=== PATIENT | male | born 1965 | race Caucasian/White ===

== ENCOUNTER 2016-11-03 13:43 | Inpatient (IN) | payer OTHER ==
--- NOTE | 2017-01-22 09:49 | HP ---
DATE OF CLINIC: 01/13/2017 SANTIAGO DELVALLE : 1965 PLANNED PROCEDURE: Right Total Hip Arthroplasty DATE OF PROCEDURE: January 25, 2017 SURGEON: Santiago Stauffer M.D. PCP: Dr. Karl Cardoso @[facility] HISTORY OF PRESENT ILLNESS Santiago Delvalle is a 51 year old male. * Medication list reviewed with patient allergy list reviewed with patient. * Tried NSAIDS * Has not tried Physical Therapy * Has not tried Injections Mr. Delvalle is in today pre-operatively for his upcoming R LATOYA with Dr. Stauffer on 01/25/17. Patient presents in good spirits and is ready to proceed. He denies recent illness, change in health, or previous surgical complications. is recent consult with Dr. Stauffer follows: 51-year-old male here for initial consultation with respect to right greater than left hip pain. This has been progressive with some initial problems since approximately 1993. This has been previously managed at the [facility] with some notes available for my review. He describes his discomfort as lateral with some radiation anteriorly and posteriorly. It is worse with weight-bearing, although has rest discomfort. He has no radicular symptoms. Some radiation down to the knee more so on the right side. His pain at times is quite sharp. He does have increased discomfort going up or down hills or at startup. He uses ibuprofen as well as acetaminophen. He is interested in consideration of definitive management options. Comorbidities include hypertension and hypercholesterolemia. He currently is unemployed. He is a non-smoker. CURRENT MEDICATION * *Supplement Miscellaneous as directed vitamin c, super B complex, vitamin d3, vitamin e, fish oil, flaxseed oil, cranberry, 0 days, 0 refills * Acetaminophen 500 MG Tablet 2 tabs am 2 tabs pm 0 days, 0 refills * Cetirizine HCl 10 MG Tablet 1 once a day 0 days, 0 refills * HydroCHLOROthiazide 12.5 MG Tablet 1 once a day 0 days, 0 refills * Ibuprofen 800 MG Tablet three times a day 0 days, 0 refills * Losartan Potassium 50 MG Tablet half a tablet every day 0 days, 0 refills * Simvastatin 20 MG Tablet 1 once a day 0 days, 0 refills * ZyrTEC Allergy 10 MG Capsule 1 once a day 0 days, 0 refills PAST MEDICAL/SURGICAL HISTORY Reported: Medical: A previous fracture Right middle finger, Reported numbness hands and right testical, Reported tingling hands and right testical, history of Arthritis, Depression constant pain and unemployed, Hypertension, Vertigo, Poor healing wounds/lesions, and Asthma. Surgical / Procedural: Prior surgery oral (teeth removed and implants) 2013, Carpal Tunnel Surgery Left 2009, Right , and Arthroscopy Right knee . SOCIAL HISTORY Behavioral: Caffeine use and non-smoker never smoked. Smoking status: Never smoker. Alcohol: Alcohol use. Work: Occupation unemployed. ALLERGIES * Penicillin REVIEW OF SYSTEMS Systemic: No fever and no recent weight change. Head: No head symptoms. Cardiovascular: Cardiovascular symptoms HTN. Pulmonary: No pulmonary symptoms. Gastrointestinal: No gastrointestinal symptoms. Psychological: No psychological symptoms. Skin: No skin lesions and no rash. PHYSICAL FINDINGS * Vitals taken 01/13/2017 09:57 am BP-Sitting R 161/102 mmHg 100 - 120/60 - 80 BP Cuff Size Regular Pulse Rate-Sitting 85 bpm 50 - 100 Temp-Oral 99 F 96 - 101 Height 67.5 in 64 - 74 Weight 218 lbs 6.4 oz 125 - 225 Body Mass Index 33.7 kg/m2 Body Surface Area 2.11 m2 Pain Level 7 Ears, Nose, Throat: * ENT: normal. Lungs: * Clear to auscultation. Cardiovascular: Heart Rate and Rhythm: * Normal. Abdomen: * Normal. Neurological: Motor: * Dominant Hand = Right Hand. Patient is an obese male no in acute distress, normal-appearing mood and affect. He has a level pelvis. Ambulates with an externally rotated Trendelenburg gait favoring the right. Evaluation of the right hip girdle shows skin integrity to be well-preserved, no wounds, rashes or lesions. Mild tenderness laterally over the trochanter, NT in the groin, NT in the sciatic notch. ROM is greater than 90 degrees of flexion, 30 degrees of abduction, 45 degrees ER, 10 degrees IR with exacerbation of pain. Patient can adduct to the midline and extend fully. Thigh is soft and NT. No atrophy or asymmetry compared to the contralateral side. Cursory exam of the knee shows normal alignment. No swelling or effusion. skin integrity to be well-preserved, no wounds, rashes or lesions. Motion 0-125 degrees. Normal ligamentous exam. Calf is soft and NT. Distal light touch sensation and motor function are grossly intact and symmetric. Pulses are palpable. Sitting SLR is negative. Evaluation of the left hip shows skin integrity to be well-preserved, no wounds, rashes or lesions. He is NT laterally, NT in the groin, NT in the sciatic notch. Motion is greater than 90 degrees of flexion, 20 degrees IR with groin pain, 45 degrees ER, 35 degrees of abduction, he can adduct past the midline and extend fully. Thigh is soft and NT with no atrophy or asymmetry compared to the contralateral side. Evaluation of the knee shows skin integrity to be well-preserved, no wounds, rashes or lesions. No swelling or effusion. Motion 0-130 degrees. Normal ligamentous exam. No focal medial or lateral joint-line tenderness. NT in the proximal tibia. Calf is soft and NT. Distal light touch sensation and motor function are grossly intact and symmetric. Pulses are palpable. Sitting SLR is negative. TESTS * Test: URINALYSIS WITH MICROSCOPIC Report Date: 01/13/2017 EPITHELIAL CELL OCCASIONAL WBC 0-3 GLUCOSE NEGATIVE BACTERIA 0 PH,URINE 5.0 SPEC. GRAVITY 1.025 KETONE NEGATIVE NITRITE NEGATIVE RBC 0 BLOOD TRACE BILIRUBIN NEGATIVE APPEARANCE HAZY PROTEIN NEGATIVE COLOR YELLOW LEUK ESTERASE TRACE UROBILINOGEN NORMAL * Test: CBC WITH DIFF Report Date: 01/13/2017 WBC 7.5 10*3/mL BASOPHIL 1.2 % High RBC 5.37 10*6/uL NEUTROPHILS 53.5 % MCH 28.5 pg MCHC 33.7 g/dL RDW 13.4 % MCV 84.5 fL PLATELET COUNT 294 10*3/mL IMM NEUT % 0.4 % IMM NEUT # 0.0 10*3/mL MONOCYTES 8.3 % EOSINOPHIL 4.4 % High HCT 45.4 % HGB 15.3 g/L LYMPHOCYTE 32.2 % ANC 4.0 10*3/mL * Test: PROTHROMBIN TIME Report Date: 01/13/2017 PROTIME 9.8 s INR 0.93 * Test: PARTIAL THROMBOPLASTIN TIME Report Date: 01/13/2017 APTT 23.3 s Low * Test: COMPREHENSIVE METABOLIC PANEL Report Date: 01/13/2017 ALT/SGPT 24 U/L ALBUMIN 4.6 g/dL ALB/GLOB RATIO 1.9 BUN 15 mg/dL BUN/CREAT RATIO 14 CALCIUM 9.8 mg/dL GLUCOSE 104 mg/dL High CREATININE 1.1 mg/dL SODIUM 139 meq/L POTASSIUM 4.2 meq/L CHLORIDE 104 meq/L CARBON DIOXIDE 30 meq/L ANION GAP 9 meq/L TOT PROTEIN 7.0 g/dL GLOBULIN 2.4 g/dL BILI,TOTAL 0.5 mg/dL AST/SGOT 19 U/L ALK PHOSPHATASE 41 U/L GFR 71 Pelvis and right hip films from today are reviewed. This shows complete superior joint loss with femoral head flattening. There is superolateral prominence at the head/neck junction, periarticular sclerosis. Medial osteophyte is also seen. Bony mineralization is reasonable. Contralateral hip shows similar, but not quite as dramatic changes with some superolateral head subchondral cystic changes. ASSESSMENT * Localized primary osteoarthritis of the right hip Advanced DJD, right hip. Advanced DJD, left hip. THERAPY * Patient not eligible for fall risk assessment. PLAN * Unilateral primary osteoarthritis, right hip Physical Therapy: *Other * OTHER OxyCONTIN 10 MG T12A, 1 po q 12 hours-TO BE USED FOR AFTER SURGERY, 10 days, 0 refills TraMADol HCl 50 MG TABS, 1 po q 6 hours prn pain-TO BE USED FOR AFTER SURGERY, 5 days, 0 refills OxyCODONE HCl 5 MG TABS, 1-2 po q 4-6 hours for break thru pain if needed-TO BE USED FOR AFTER SURGERY, 5 days, 0 refills * Total hip replacement -Right Discussed with patient in detail the limitations, expectations as well as risks and possible complications of surgery including, but not limited to wound problems or infection, neurovascular injury, continued hip pain or dysfunction, postop instability including the possibility of dislocation and/or postop leg length discrepancy, and the possibility of prosthetic wear or failure over time that may require additional operative or non-operative treatment. Patient also realizes the perioperative risks including risks associated with anesthesia and would like to proceed. A full PAR conference was held, questions and concerns addressed and informed consent was obtained. Patient will be sent from my office for completion of the preoperative workup. Patient will use enteric coated aspirin 325mg daily for 6 weeks postoperatively for DVT prophylaxis. Patient would like to perform their postop PT at [facility] with right total hip arthroplasty protocol, posterior hip precautions. CARE TEAM Need To Load Need to Load Ph.D.Medical Genetics CC: Karl Cardoso MD - [facility] RS/sg
[2017-01-25] MEDS ORDERED: LACTATED RINGERS 1,000 ML ONE (05:33)
[2017-01-25] MEDS ORDERED: IV START KIT ONE (05:33)
[2017-01-25] MEDS ORDERED: CELECOXIB 200 MG CAPSULE PO ONE (05:45)
[2017-01-25] MEDS ORDERED: OXYCODONE HCL 10 MG TAB.SR PO ONE ×2 (05:45→06:40)
[2017-01-25] MEDS ORDERED: CLONIDINE HCL 0.1 MG/24 HR (7 DAY PATCH) TD SCH (05:45)
[2017-01-25] MEDS ORDERED: FAMOTIDINE 20 MG TABLET PO ONE (05:45)
[2017-01-25] MEDS ORDERED: TRAMADOL HCL 50 MG TABLET PO ONE (05:45)
[2017-01-25] MEDS ORDERED: CLINDAMYCIN 900 MG PREMIX 100 ML IV PRN (05:45)
[2017-01-25] MEDS ORDERED: ONDANSETRON 4 MG/2ML 2 ML VIAL IV ONE (05:45)
[2017-01-25] MEDS ORDERED: GABAPENTIN 600 MG TABLET PO ONE (05:45)
[2017-01-25] MEDS ORDERED: CLINDAMYCIN 900 MG PREMIX 50 ML IV ONE (05:48)
[2017-01-25] MEDS ORDERED: TRAMADOL HCL 50 MG TABLET ONE (06:40)
[2017-01-25] MEDS ORDERED: FAMOTIDINE 20 MG TABLET ONE (06:40)
[2017-01-25] MEDS ORDERED: ONDANSETRON 4 MG/2ML 2 ML VIAL ONE (06:41)
[2017-01-25] MEDS ORDERED: GABAPENTIN 600 MG TABLET ONE (06:41)
[2017-01-25] MEDS ORDERED: CLONIDINE HCL 0.1 MG/24 HR (7 DAY PATCH) TD ONE (06:41)
[2017-01-25] MEDS ORDERED: CELECOXIB 200 MG CAPSULE ONE (06:41)
[2017-01-25] MEDS ORDERED: MIDAZOLAM HCL 5 MG/5 ML VIAL ONE (07:20)
[2017-01-25] MEDS ORDERED: FENTANYL 100 MCG/2 ML VIAL ONE (07:20)
[2017-01-25] MEDS ORDERED: SPINAL PROCEDURAL TRAY 1 EACH ONE (07:23)
[2017-01-25] MEDS ORDERED: BUPIVACAINE 0.75% SPINAL AMPUL 2 ML ONE (07:23)
[2017-01-25] MEDS ORDERED: BUPIVACAINE 0.25% (MDV) 20 ML in SODIUM CHLORIDE 0.9% FLUSH 20 ML IF PRN (07:50)
[2017-01-25] MEDS ORDERED: BUPIVACAINE 0.25% (MDV) 24 ML, MORPHINE SULFATE 8 MG, EPINEPHRINE 0.3 MG in SODIUM CHLO... IF PRN (07:50)
[2017-01-25] MEDS ORDERED: TRANEXAMIC ACID 1,000 MG in SODIUM CHLORIDE 0.9% 100 ML IV PRN (07:50)
[2017-01-25] MEDS ORDERED: POLYMYXIN B SULFATE 500,000 UNITS, BACITRACIN 25,000 UNITS in SODIUM CHLORIDE 3 L IRRIG... IR PRN (07:50)
[2017-01-25] MEDS ORDERED: PROPOFOL 40 ML IV ONE (08:00)
[2017-01-25] MEDS ORDERED: KETAMINE HCL UD SYRINGE 100 MG/2 ML IV ONE (08:00)
[2017-01-25] MEDS ORDERED: EPHEDRINE SULFATE UD SYR 25 MG 25 MG/5 ML SYRINGE IV ONE (08:11)
[2017-01-25] MEDS ORDERED: PHENYLEPHRINE 10 MG/1 ML (1%) VIAL ONE (08:15)
[2017-01-25] MEDS ORDERED: LACTATED RINGERS 1,000 ML IV SCH (08:30)
[2017-01-25] MEDS ORDERED: FENTANYL 100 MCG/2 ML VIAL IV PRN (08:30)
[2017-01-25] MEDS ORDERED: HYDROMORPHONE HCL 1 MG/ML SYRINGE IV PRN (08:30)
[2017-01-25] MEDS ORDERED: PROMETHAZINE HCL 25 MG/ML VIAL IM PRN (08:30)
[2017-01-25] MEDS ORDERED: ONDANSETRON 4 MG/2ML 2 ML VIAL IV PRN ×2 (08:30→10:29)
[2017-01-25] MEDS ORDERED: NALOXONE HCL 0.4 MG/ML VIAL IV PRN (08:30)
[2017-01-25] MEDS ORDERED: ATROPINE SULFATE 0.4 MG/1 ML VIAL IV PRN (08:30)
--- NOTE | 2017-01-25 10:17 | PCMBPN ---
Brief Post Op Note: Date of Procedure: 01/25/17 Preoperative Diagnosis: DJD right hip Postoperative Diagnosis: 1. [Same] Procedure: right LATOYA Surgeon: Santiago Stauffer MD Assist:Rohan (TANIKA) Anesthesia: spinal (Bahrke) Condition: stable to PAR Complications: none IV Fluids:1500 mLs of LR Urine Output: 90 mLs Estimated Blood Loss: 200 mLs Tourniquet Time: [N/A] Specimens: [N/A] Implants: Trilock Drains: [N/A]
[2017-01-25] MEDS ORDERED: TEMAZEPAM 15 MG CAPSULE PO PRN (10:29)
[2017-01-25 10:47] VITALS: BMI 33.7
[2017-01-25] MEDS ORDERED: PUMP TUBING ONE (11:44)
[2017-01-25] MEDS: D5 1/2NS with 20 mEq KCL 1,000 ML IV SCH ×2 (11:49→19:17)
[2017-01-25] MEDS: OXYCODONE HCL 5 MG TABLET PO PRN ×4 (12:17→22:51)
[2017-01-25] MEDS: KETOROLAC TROMETHAMINE 30 MG/ML 1 ML VIAL IV PRN ×2 (12:17→18:10)
--- NOTE | 2017-01-25 12:26 | RAD ---
PELVIS HISTORY: Postop right LATOYA COMPARISONS: Hip series 08/04/2016 FINDINGS: Single AP view of the pelvis and straight right total hip arthroplasty changes. Hardware is intact without signs of failure or loosening on the single projection. No fracture or dislocation. Degenerative changes of left hip are again noted. Nonspecific bowel gas pattern overlays the osseous structures. Soft tissue gas from the patient's surgery is identified. IMPRESSION: Satisfactory postoperative exam.
[2017-01-25] MEDS: CLINDAMYCIN 600 MG PREMIX 600 MG in Premix (D5W) 50 ml 1 EACH IV SCH ×2 (14:00→20:12)
[2017-01-25] MEDS: TRAMADOL HCL 50 MG TABLET PO PRN ×2 (14:58→22:51)
[2017-01-25] MEDS: ACETAMINOPHEN 500 MG TABLET PO SCH ×2 (15:45→22:50)
[2017-01-25] MEDS: ASCORBIC ACID 500 MG TABLET PO SCH (20:12)
[2017-01-25] MEDS: SIMVASTATIN 10 MG TABLET PO SCH (20:12)
[2017-01-25] MEDS: DOCUSATE SODIUM 100 MG CAPSULE PO SCH (20:12)
[2017-01-26] MEDS: D5 1/2NS with 20 mEq KCL 1,000 ML IV SCH (02:23)
[2017-01-26] MEDS: CLINDAMYCIN 600 MG PREMIX 600 MG in Premix (D5W) 50 ml 1 EACH IV SCH (02:24)
[2017-01-26] MEDS: OXYCODONE HCL 5 MG TABLET PO PRN ×4 (02:33→21:51)
[2017-01-26] MEDS: ACETAMINOPHEN 500 MG TABLET PO SCH ×4 (05:20→21:51)
[2017-01-26] MEDS: TRAMADOL HCL 50 MG TABLET PO PRN (05:20)
[2017-01-26] MEDS ORDERED: REMOVE PATCH 1 EACH UNIT TD SCH (05:45)
[2017-01-26 06:36] LABS: HEMATOCRIT 32.8 % (32.0-52.0); HEMOGLOBIN 10.7 gm/l (14.0-18.0); MEAN CELL VOLUME 87.7 fl (80.0-94.0); MEAN CORPUSCULAR HEMOGLOBIN 28.6 pg (27.0-31.0); MEAN CORPUSCULAR HGB CONC 32.6 g/dl (33.0-37.0); RED CELL DISTRIBUTION WIDTH 13.8 % (11.5-14.5)
[2017-01-26 06:48] LABS: CALCIUM 8.4 mg/dL (8.6-10.3)
[2017-01-26] MEDS: DOCUSATE SODIUM 100 MG CAPSULE PO SCH ×2 (08:51→21:52)
[2017-01-26] MEDS: CELECOXIB 200 MG CAPSULE PO SCH (08:51)
[2017-01-26] MEDS: LOSARTAN POTASSIUM 50 MG TABLET PO SCH (08:52)
[2017-01-26] MEDS: HYDROCHLOROTHIAZIDE 12.5 MG CAP PO SCH (08:52)
[2017-01-26] MEDS: ASPIRIN (ENTERIC COATED) 325 MG TABLET.EC PO SCH (08:52)
[2017-01-26] MEDS: MULTIVITAMINS 1 TAB TABLET PO SCH (08:53)
[2017-01-26] MEDS: ASCORBIC ACID 500 MG TABLET PO SCH ×2 (08:54→21:51)
[2017-01-26] MEDS: CETIRIZINE HCL 10 MG TABLET PO SCH (08:54)
--- NOTE | 2017-01-26 09:35 | PDOC43 ---
- Subjective Findings: Pt seen this morning. Hip doing fine but he didn't get much sleep. States he is having right eye discomfort, itching, blurred vision. Feels as if he has scratched his eye. He flt this way yesterday despite he did not mention it to me until today Subjective: Reports Pain Tolerable, Denies Chest Pain, Denies Shortness of Breath, Denies Nausea, Denies Vomiting, Denies Fever - Objective Vital Signs Temperature 97.8 F 01/26/17 07:18 Pulse Rate 84 01/26/17 07:18 Respiratory Rate 16 01/26/17 07:41 Blood Pressure 118/62 01/26/17 07:18 O2 Saturation by Pulse Oximetry 98 01/26/17 07:18 Oxygen Delivery Method Room Air Oxygen Flow Rate 0 Laboratory 01/26/17 06:00 01/26/17 05:10 01/26/17 01/26/17 06:00 05:10 RBC 3.74 L MCHC 32.6 L Anion Gap 7 L Calcium 8.4 L Active Medication Orders Category Date Time Status Acetaminophen [Tylenol] Med 01/25/17 16:30 Active 1,000 mg PO Q6H Ascorbic Acid [Vitamin C] Med 01/25/17 21:00 Active 500 mg PO BID Aspirin (Enteric Coated) [Ecotrin] Med 01/26/17 09:00 Active 325 mg PO DAILY Bisacodyl [Dulcolax] Med 01/28/17 10:18 Active 10 mg TN DAILY PRN Calcium Carbonate [Tums] Med 01/25/17 10:29 Active 1,000 - 2,000 mg PO Q2H PRN Celecoxib [Celebrex] Med 01/26/17 09:00 Active 200 mg PO DAILY Cetirizine HCl [Zyrtec] Med 01/26/17 09:00 Active 10 mg PO DAILY D5 1/2NS with 20 mEq KCL [D51/2NS with 20 mEq KCL] 1, Med 01/25/17 10:30 Active 000 ml IV 125 mls/hr Docusate Sodium [Colace] Med 01/25/17 21:00 Active 100 mg PO BID Hydrochlorothiazide Med 01/26/17 09:00 Active 12.5 mg PO DAILY Hydroxyzine Pamoate [Vistaril] Med 01/25/17 10:29 Active 25 - 50 mg PO Q4H PRN Ketorolac Tromethamine [Toradol] Med 01/25/17 10:29 Active 30 mg IV Q6H PRN Losartan Potassium [Cozaar] Med 01/26/17 09:00 Active 25 mg PO DAILY Magnesium Hydroxide [Milk of Magnesia] Med 01/26/17 10:18 Active 30 ml PO DAILY PRN Multivitamins [One-A-Day] Med 01/26/17 09:00 Active 1 tab PO DAILY Ondansetron 4 mg/2ml Vial [Zofran] Med 01/25/17 10:29 Active 4 - 6 mg IV Q6H PRN Oxycodone HCl [Roxicodone] Med 01/25/17 10:29 Active 5 - 10 mg PO Q4H PRN Remove Patch Med 01/26/17 10:18 Once 1 each TD X1 ONE Simvastatin [Zocor] Med 01/25/17 20:00 Active 20 mg PO QPM Sodium Chloride 0.9% Flush [Normal Saline 10ml Flush] Med 01/25/17 10:29 Active 10 - 50 ml IV PRN PRN Sodium Chloride 0.9% Flush [Normal Saline 10ml Flush] Med 01/26/17 09:00 Active 10 ml IV Q8HR Temazepam [Restoril] Med 01/25/17 10:29 Active 15 mg PO BEDTIME PRN Tetrahydrozoline HCl [Opti-Clear] Med 01/26/17 09:16 Ordered 2 gtts OD Q4H PRN Tramadol HCl [Ultram] Med 01/25/17 10:29 Active 50 mg PO Q6H PRN Intake and Output 01/24/17 01/25/17 01/26/17 23:59 23:59 23:59 Intake Total 3055 3225 Output Total 1065 1650 Balance 1990 1575 General: Afebrile HEENT: PERRLA, EOMI, Other (Right eye with mld marginal eythema, some exudate on lashes. No Purulent drainage. With unable to see foreign bodywith ophthalmoscope.) Lungs: Normal Air Movement Abdomen: Soft, Non-Distended Skin: Normal Color Neurological: Alert, Oriented x 4 Psych/Mental Status: Normal Affect - Right Lower Extremity Incision: Dressing Clean/Dry/Intact Motor: Extensor Hallucis Longus: 5/5, Tibialis Anterior: 5/5, Gastrocnemius: 5/5 , Peroneals: 5/5, Quadriceps: 3/5 Gross Sensation to Light Touch: Present: Deep Peroneal Nerve, Superficial Peroneal Nerve Motion: Calf soft NT Knee and hip Rom without sig pain Mod assist with SLR - Problems (1) Status post right hip replacement Status: AcuteAssessment/Plan: Pod#1 1. Physical Therapy:Mobilize with PT/OT 2. Pain Control:Per protocol 3. DVT Prophylaxis:ASA, foot pumps and mobility 4. Disposition:Hip is doing good, Will monitor his eye may need slit lamp exam 5. Medical Issues:Superficial right eye abrasion. Will rinse and cleanse and add antibiotic drops if needed
[2017-01-26] MEDS: TETRAHYDROZOLINE 0.05% OD PRN ×3 (09:41→21:52)
[2017-01-26] MEDS: [UNRECOGNIZED DRUG - OTHER] OD PRN ×3 (09:41→21:52)
--- NOTE | 2017-01-26 09:49 | OP ---
JENNA FREEMAN [id number] : 1965 DATE OF SURGERY: January 25, 2017 PREOPERATIVE DIAGNOSIS: Degenerative joint disease right hip POSTOPERATIVE DIAGNOSIS: Same PROCEDURE: Right Total Hip Arthroplasty COMPONENTS: Tri-Lock size 5 standard offset press-fit femoral stem with a +1.5 36mm Delta ceramic femoral head, 54mm Sanders 100 press-fit acetabular shell with a neutral +4 cross-linked polyethylene liner. SURGEON: Eh ASSIST: Aster SOLIMAN) ANESTHESIA: Spinal per Bahrke EBL: 200 mL URINE OUTPUT: 90 mL IVF REPLACEMENT: Per anesthesia, 1.5 liters crystalloid DRAINS: None COMPLICATIONS: None HISTORY: Briefly, patient is a [id number] with clinical and radiographic evidence most consistent with degenerative joint disease of their right hip. They have failed traditional nonoperative measures and at this point desire elective surgical management. For additional details, refer to previously dictated Preoperative History and Physical Exam. A full PAR conference was held, questions and concerns were addressed, and informed consent was obtained. FINDINGS: Advanced degenerative changes with a large medial acetabular osteophyte and femoral head eburnation. Bony mineralization was reasonable. PROCEDURE: The patient was taken to the operating room and after previously described anesthesia was placed in the lateral decubitus position on the operating room table and held with the peg board positioner. Monica prominences were well padded and an axillary roll was placed. The right hip girdle and lower extremity were then prepped and draped out in the usual sterile fashion. Preoperative antibiotics were given empirically. Intraoperative DVT prophylaxis consisted of bilateral mechanical foot pumps. Personal filtration suits were used as was a closed room environment. An oblique ten centimeter incision was made using the minimally invasive guide posterior and extending slightly proximal to the greater trochanter. We dissected through subcutaneous tissue down to the gluteus fascia. Electrocautery was used at this point and throughout the duration of the case to establish and maintain hemostasis. The gluteus fascia was incised in line with the incision and the muscle fibers split to expose the underlying bursal tissue. Tranexamic acid was infiltrated over 10 minutes prior to incision, 1 gram dose per protocol. A similar 2nd dose was given at initiation of closure. A deep self retaining field retractor was placed. The short external rotators were identified, the piriformis was tagged and reflected with the underlying capsule which was reflected in a U fashion off the femoral neck and tagged as well for later repair. Release of the capsule allowed for dislocation of the hip and the femoral head was brought up into the operative field. A femoral neck cut was made proximal to the lesser trochanter as per our preoperative templating. We then translated the femur anteriorly exposing the acetabulum. The remaining labrum was excised circumferentially. Osteophytes were debrided under direct visualization. We reamed to the true acetabular floor and then incrementally up to a 53 as per our preoperative plan at which point we noted circumferential bleeding cancellous bone. This was trialed at approximately 45 degrees of abduction and 20 degrees of anteversion, which is slightly more than his [place], with good fit and stability. I closed him down more than his normal geometry as well for the stability standpoint. We then impacted the true acetabular component which was seated completely. An apical hole cover was placed and we impacted the neutral crosslinked polyethylene liner. Attention was then directed back to the femur. The remaining soft tissue was cleared from the piriformis fossa and we use a rongeur and box osteotome to enter the proximal femoral canal followed by the canal seeker and then the broach only system up to a size 5 matching the patient's [place] anteversion with good proximal fill and rotational stability. This was trialed with a standard offset +1.5. The hip was then reduced with good stability to 70 degrees of internal rotation in 90 degrees of flexion and full extension with no instability on external rotation. There was good soft tissue balance and approximately equal leg lengths. Satisfied, trial components were removed and we impacted the true femoral stem. The trunnion was then cleaned and dried and the femoral head was impacted. The hip was then reduced with stability as previously discussed. Satisfied, we turned our attention to closure. The wound was copiously irrigated with antibiotic pulsatile lavage. We then advanced the capsule and piriformis to the gluteus medius insertion. The gluteus fascia was closed with a running number two PDO StratoFix suture. 1st periarticular injection was given at this point per protocol into the capsule, synovium, gluteus and external rotators. The subcutaneous tissue was closed with interrupted 2-0 and 3-0 Vicryl and the skin was closed with a running 4-0 Monocryl stitch with Indermil and Steri-Strips. The 2nd periarticular injection was done at this point per protocol into the subcutaneous tissue superiorly and anteriorly to the incision. A sterile hip dressing was then applied, the patient was returned to the supine position, transferred to their hospital bed, and sent to the postoperative recovery room in stable condition. They tolerated the procedure well. Sponge, instrument, and needle count were correct. DANIKA/mrw CC: Karl Cardoso MD [facility]
[2017-01-26] MEDS ORDERED: MAGNESIUM HYDROXIDE 30 ML UDCUP PO PRN (10:18)
[2017-01-26] MEDS ORDERED: REMOVE PATCH 1 EACH UNIT TD ONE (10:18)
[2017-01-26] MEDS: HYDROXYZINE PAMOATE 25 MG CAPSULE PO PRN ×3 (11:57→21:52)
[2017-01-26] MEDS: SIMVASTATIN 10 MG TABLET PO SCH (20:18)
[2017-01-26] MEDS: CALCIUM CARBONATE 500 MG TAB.CHEW PO PRN (22:06)
[2017-01-27] MEDS: ACETAMINOPHEN 500 MG TABLET PO SCH ×2 (05:12→11:12)
[2017-01-27 06:09] LABS: HEMATOCRIT 31.5 % (32.0-52.0); HEMOGLOBIN 10.2 gm/l (14.0-18.0)
--- NOTE | 2017-01-27 08:07 | PDOC43 ---
- Subjective Findings: Pt seen this morning awake doing well with his hip. Still having right eye pain , redness, increased drainage and blurred vision. States would like to go home today if possible. Subjective: Reports Flatus, Reports Pain Tolerable, Denies Chest Pain, Denies Shortness of Breath, Denies Nausea, Denies Vomiting, Denies Fever - Objective Vital Signs Temperature 98.5 F 01/27/17 06:59 Pulse Rate 86 01/27/17 06:59 Respiratory Rate 16 01/27/17 06:59 Blood Pressure 121/69 01/27/17 06:59 O2 Saturation by Pulse Oximetry 94 01/27/17 06:59 Oxygen Delivery Method Room Air Oxygen Flow Rate 0 Laboratory 01/27/17 05:30 01/26/17 05:10 Active Medication Orders Category Date Time Status Acetaminophen [Tylenol] Med 01/25/17 16:30 Active 1,000 mg PO Q6H Ascorbic Acid [Vitamin C] Med 01/25/17 21:00 Active 500 mg PO BID Aspirin (Enteric Coated) [Ecotrin] Med 01/26/17 09:00 Active 325 mg PO DAILY Bisacodyl [Dulcolax] Med 01/28/17 10:18 Active 10 mg MT DAILY PRN Calcium Carbonate [Tums] Med 01/25/17 10:29 Active 1,000 - 2,000 mg PO Q2H PRN Celecoxib [Celebrex] Med 01/26/17 09:00 Active 200 mg PO DAILY Cetirizine HCl [Zyrtec] Med 01/26/17 09:00 Active 10 mg PO DAILY Docusate Sodium [Colace] Med 01/25/17 21:00 Active 100 mg PO BID Hydrochlorothiazide Med 01/26/17 09:00 Active 12.5 mg PO DAILY Hydroxyzine Pamoate [Vistaril] Med 01/25/17 10:29 Active 25 - 50 mg PO Q4H PRN Losartan Potassium [Cozaar] Med 01/26/17 09:00 Active 25 mg PO DAILY Magnesium Hydroxide [Milk of Magnesia] Med 01/26/17 10:18 Active 30 ml PO DAILY PRN Multivitamins [One-A-Day] Med 01/26/17 09:00 Active 1 tab PO DAILY Ondansetron 4 mg/2ml Vial [Zofran] Med 01/25/17 10:29 Active 4 - 6 mg IV Q6H PRN Oxycodone HCl [Roxicodone] Med 01/25/17 10:29 Active 5 - 10 mg PO Q4H PRN Simvastatin [Zocor] Med 01/25/17 20:00 Active 20 mg PO QPM Sodium Chloride 0.9% Flush [Normal Saline 10ml Flush] Med 01/25/17 10:29 Active 10 - 50 ml IV PRN PRN Sodium Chloride 0.9% Flush [Normal Saline 10ml Flush] Med 01/26/17 09:00 Active 10 ml IV Q8HR Temazepam [Restoril] Med 01/25/17 10:29 Active 15 mg PO BEDTIME PRN Tetrahydrozoline HCl [Opti-Clear] Med 01/26/17 09:16 Active 0 gtts OD Q4H PRN Tramadol HCl [Ultram] Med 01/25/17 10:29 Active 50 mg PO Q6H PRN Intake and Output 01/25/17 01/26/17 01/27/17 23:59 23:59 23:59 Intake Total 3055 4540 1400 Output Total 1065 4500 1250 Balance 1989 40 150 General: Afebrile HEENT: Atraumatic Lungs: Normal Air Movement Abdomen: Soft, Non-Distended Skin: Normal Color Neurological: Alert, Oriented x 4 Psych/Mental Status: Normal Affect - Right Lower Extremity Incision: Ecchymosis, Well Approximated, Other (Small area of blister from tape. Wound itself doing fine), No Drainage Motor: Extensor Hallucis Longus: 5/5, Tibialis Anterior: 5/5, Gastrocnemius: 5/5 , Peroneals: 5/5, Quadriceps: 3/5 Gross Sensation to Light Touch: Present: Deep Peroneal Nerve, Medial Plantar Nerve Capillary Refill: < 3 Seconds Motion: Calf soft NT gentle rom knee and hip without pain - Problems (1) Status post right hip replacement Status: AcuteAssessment/Plan: Pod#2 1. Physical Therapy:Mobilize with PT/OT 2. Pain Control:Per protocol 3. DVT Prophylaxis:ASA, foot pumps and mobility 4. Disposition:Hip is doing good, Will monitor his eye may need slit lamp exam vs d/c on antibiotic eye drops 5. Medical Issues:Superficial right eye abrasion vs conjunctivitis. Discussed with Dr. Stauffer and Dr Angulo will ask for hospitalist consult.
[2017-01-27] MEDS: OXYCODONE HCL 5 MG TABLET PO PRN ×2 (08:26→11:44)
[2017-01-27] MEDS: CALCIUM CARBONATE 500 MG TAB.CHEW PO PRN (08:27)
[2017-01-27] MEDS: HYDROXYZINE PAMOATE 25 MG CAPSULE PO PRN ×2 (08:27→11:12)
[2017-01-27] MEDS: CETIRIZINE HCL 10 MG TABLET PO SCH (09:03)
[2017-01-27] MEDS: DOCUSATE SODIUM 100 MG CAPSULE PO SCH (09:03)
[2017-01-27] MEDS: LOSARTAN POTASSIUM 50 MG TABLET PO SCH (09:04)
[2017-01-27] MEDS: ASCORBIC ACID 500 MG TABLET PO SCH (09:04)
[2017-01-27] MEDS: CELECOXIB 200 MG CAPSULE PO SCH (09:04)
[2017-01-27] MEDS: ASPIRIN (ENTERIC COATED) 325 MG TABLET.EC PO SCH (09:04)
[2017-01-27] MEDS: MULTIVITAMINS 1 TAB TABLET PO SCH (09:04)
[2017-01-27] MEDS: HYDROCHLOROTHIAZIDE 12.5 MG CAP PO SCH (09:05)
[2017-01-27] MEDS ORDERED: PROPARACAINE HCL 0.5% 300 GTTS/BOT SOLN.DROP OD ONE (11:04)
--- NOTE | 2017-01-27 11:13 | PDOC36 ---
Provider Note Subject: R eye irritation Note: Patient is a 51 yr old male who denies prior eye dx who reports right eye discomfort, some discharge and some light sensitivity noted after having right total hip arthroplasty 01/25/17. Ortho requests we look at his eye, as pt hopes to be discharged soon. PMH includes HTN, hypercholesterolemia, allergies, asthma. He is allergic to penicillin. He is a nonsmoker, and is unemployed. He is hoping to be discharged to home today. ON exam, nontoxic male Vital Signs Last 12 Hours Temp Pulse Resp BP Pulse Ox 01/27/17 09:45 88 117/65 96 01/27/17 06:59 98.5 F 86 16 121/69 94 01/27/17 02:54 20 01/27/17 02:00 100.2 F 90 20 106/65 97 Acuity - Patient able to read print on wrapper for Large Alcohol Prep pad, does well with small print. Eyes - lid on R with some mattering, sl blepharitis noted. Lashes appear intact , unrem. Conjunctiva with sl injection noted, no FB seen. Cornea clear. Fluorescein without any corneal uptake; Proparacaine used for numbing eye. Iris unrem, appears reactive. Assessment: suspect conjunctivitis; no corneal abrasion seen. Plan - anticipate DC with cipro ophth drops for next 5 days, rec'd seeing PCP or eye Dr if worsening eye pain, change in visual acuity or not improving.
[2017-01-27 11:38] VITALS: BP 117/65
[2017-01-27] MEDS: TRAMADOL HCL 50 MG TABLET PO PRN (13:01)
[2017-01-28] MEDS ORDERED: BISACODYL 10 MG SUP PR PRN (10:18)
--- NOTE | 2017-01-28 11:23 | DS ---
Santiago FREEMAN [id number] : 1965 DATE OF ADMISSION: January 25, 2017 DATE OF DISCHARGE: January 27, 2017 DISCHARGE DIAGNOSES: Right hip osteoarthritis. HOSPITAL PROCEDURES: Right hip arthroplasty. SURGEON: Santiago Stauffer M.D. BRIEF HISTORY: Patient is a 51-year-old male with clinical and radiographic evidence of advanced DJD of their right hip. For the full history please see the chart note. BRIEF HOSPITAL COURSE: Patient was admitted on, January 25, 2017 Dr. Santiago Stauffer performed a right total hip arthroplasty. Patient was moved to the recovery room in stable condition. They were given 4 doses of antibiotic for empiric coverage. DVT prophylaxis consisted of enteric-coated aspirin, RICARDO hose and AV foot pumps. PT was instituted postop day, 0 with right total hip arthroplasty protocol, weightbearing as tolerated. Their incision site remained benign, their vital signs remained stable and they remained neurally and vascularly intact through the duration of the stay. They were discharged home postop day 3 to continue outpatient PT at [facility] with right total hip arthroplasty protocol, weightbearing as tolerated keeping total hip precautions in mind. The patient was noticed postoperative day one to have red painful blurry itchy right eye. Initial treatment consisted of eyewash and lubricating eye drops. Unfortunately this did not improve over the course of the first postoperative day. He was seen in consultation by hospitalist Dr. Karl Mack III. He underwent fluorescein testing . This ruled out corneal abrasion. He was initiated on Cipro ophthalmic drops and discharged with this medication. Je is instructed to contact his primary care and/or boat person if symptoms worsen. DISCHARGE INSTRUCTIONS: 1. Keep the wound site clean and dry, change dressing daily or as needed. 2. Continue the use of RICARDO hose bilaterally. 3. Ice pack over the wound site prn. 4. Continue total hip precautions. 5. Outpatient PT at [facility] in [place] with right total hip arthroplasty protocol, weightbearing as tolerated. MEDICATIONS: 1. Patient is to resume normal preop medications. 2. Anti-coagulation will be with aspirin, 325mg one by mouth daily for 6 weeks. 3. Pain management will be with Oxycodone, 5mg 1-2 every 4 hours prn for breakthrough pain, and Tramadol, 50mg every 6 hours prn pain, Celebrex 200 mg one per day for two weeks. 4. The patient was also given a prescription for Vistaril 25 mg every 4 to 6 hours as needed for nausea and itching. 5. Patient was also advised on utilization of a multi-vitamin with mineral daily as well as Vitamin C, 500mg, daily for 1 month. 6. Patient encouraged to take an iron supplement in the form of ferrous sulfate, 325mg daily for 4 weeks. 7. Colace, 100mg, b.i.d. until regular bowel movement. FOLLOW-UP: Please return to the clinic as scheduled for your first scheduled postop check. Prior to that point in time please call with any questions or concerns. Job [id number] CC: Stevan Cardoso M.D. in [place]
== END 2017-01-27 13:58 | disposition home or self-care (01) | DRG 470 ==
LOC: OR 01-25 05:49 → MS 01-25 10:43
PROVIDERS: ADMIT Orthopaedic Surgery; ATTEND Orthopaedic Surgery
PROC: 0SR902A Replacement of Right Hip Joint with Metal on Polyethylene Synthetic Substitute, Uncemented, Open Approach (ICD-10-PCS; principal; 2017-01-25)
DX: M16.11 Unilateral primary osteoarthritis, right hip (principal); I10 Essential (primary) hypertension; E78.00 Pure hypercholesterolemia, unspecified